=== PATIENT | female | born 1965 | race Hispanic/Latino ===

== ENCOUNTER 2018-03-10 10:02 | Day surgery (SDC) | payer BC ==
[~2018-03-10 10:02] MED LIST: VANCOMYCIN PHARMACY TO DOSE IV SCH; VANCOMYCIN/NS 1 GM/250 ML 1 GM/250 ML BAG IV SCH
[2018-03-10] MEDS ORDERED: NACL BACTERIOSTATIC INFILTRATI ONE (11:04)
[2018-03-10] MEDS ORDERED: DILAUDID IV PRN (11:25)
[2018-03-10] MEDS ORDERED: ZOFRAN IV PRN (11:25)
[2018-03-10] MEDS ORDERED: SUBLIMAZE IV NR (11:25)
[2018-03-10] MEDS ORDERED: SUBLIMAZE IV PRN (11:25)
--- NOTE | 2018-03-10 11:25 | Anesthesia Day of Surgery ---
Anesthesia Day of Surgery - Day of Surgery Patient Examined: Yes Patient H&P Reviewed: Yes Patient is NPO: Yes
--- NOTE | 2018-03-10 11:25 | Anesthesia Consultation ---
Anesthesia Consult and Med Hx - Airway Anesthetic Teeth Evaluation: Good ROM Head & Neck: Adequate Mental/Hyoid Distance: Adequate Mallampati Class: Class II Intubation Access Assessment: Good - Pulmonary Exam CTA: Yes - Cardiac Exam Cardiac Exam: RRR - Pre-Operative Health Status ASA Pre-Surgery Classification: ASA3 Proposed Anesthetic Plan: General Nerve Block: IS - Pulmonary Hx Smoking: No Hx Sleep Apnea: No (IRAJ PRE SCREEN LOW RISK) - Cardiovascular System Hx Hypertension: No - Central Nervous System Hx Back Pain: Yes - Other Systems Hx Cancer: No
[2018-03-10] MEDS ORDERED: ZEMURON IV ONE (11:33)
[2018-03-10] MEDS ORDERED: DIPRIVAN 10 MG/ML IV ONE (11:34)
[2018-03-10] MEDS ORDERED: DECADRON ONE ×2 (11:34→13:53)
[2018-03-10] MEDS ORDERED: XYLOCAINE MPF 2% ONE (11:34)
[2018-03-10] MEDS ORDERED: LACTATED RINGERS 1,000 ML IV SCH (12:00)
[2018-03-10] MEDS ORDERED: VERSED IV NR (12:00)
[2018-03-10] MEDS ORDERED: ADRENALIN ONE (12:36)
[2018-03-10] MEDS ORDERED: MARCAINE 0.25% INFILTRATI ONE ×2 (12:36→14:39)
[2018-03-10] MEDS ORDERED: NAROPIN O.5% ONE (12:44)
[2018-03-10] MEDS ORDERED: ePHEDrine SULFATE ONE (13:47)
[2018-03-10] MEDS ORDERED: ZOFRAN ONE (13:54)
[2018-03-10] MEDS ORDERED: ADRENALIN IV ONE (13:58)
[2018-03-10] MEDS ORDERED: NACL 0.9% IR ONE (13:58)
[2018-03-10] MEDS ORDERED: TYLENOL PO PRN (15:30)
[2018-03-10] MEDS ORDERED: REGLAN ONE (15:55)
[2018-03-10] MEDS ORDERED: REGLAN IV PRN (15:57)
--- NOTE | 2018-03-10 16:36 | Post Anesthesia Evaluation ---
- Post Anesthesia Evaluation Patient Participated: Yes Airway Patent: Yes Stable Respiratory Function: Yes Nausea/Vomiting: Yes Temp > 96.8F: Yes Pain Manageable: Yes Adequeate Hydration: Yes Anesthesia Complications: No Block Receding Appropriately: Not Applicable Patient on Ventilator: No
[2018-03-10 17:13] VITALS: BP 126/73
--- NOTE | 2018-03-10 23:26 | Operative Report ---
PREOPERATIVE DIAGNOSIS: Right shoulder with impingement bursitis, partial thickness cuff tear. POSTOPERATIVE DIAGNOSES: 1. Right shoulder with marked subacromial impingement bursitis. 2. Diffuse partial thickness attenuation rotator cuff, supraspinatus. 3. Partial thickness articular surface tear rotator cuff. 4. Extensive labral fraying and type 1 SLAP tear. 5. Attenuation, subscapularis. PROCEDURE PERFORMED: 1. Right shoulder arthroscopy with arthroscopic subacromial bursectomy and decompression. 2. Arthroscopic extensive debridement including partial thickness bursal and articular surface rotator cuff tears and labrum. SURGEON: Davin Palencia M.D. RADIOLOGICAL EQUIPMENT SPECIALIST: Watson Wade CSA. ANESTHESIA: General plus scalene block. ESTIMATED BLOOD LOSS: Minimal. COMPLICATIONS: None. OPERATIVE PROCEDURE: The patient underwent successful induction of anesthesia. Following this, she was carefully positioned in the beach chair position, prepped and draped in usual fashion. Arthroscopy was carried out in the standard posterior portal. Entry made through triangular space under direct vision. Systematic examination of the joint was carried out. This demonstrated the findings noted. Articular surface relatively well preserved. The rotator cuff demonstrated attenuation at the subscapularis, that there was continuity noted. The labrum demonstrated diffuse fraying and a type 1 SLAP. The articular surface of the supraspinatus demonstrated approximately 20% marginal tearing which was gently debrided. The labrum and the flap tears were also debrided. The biceps itself appeared to be well preserved and did not require any kind of tenodesis. The evaluation was carried out to intraarticular. The arthroscope was placed in the subacromial space of the posterior portal. Noted marked subacromial bursitis and type 3 acromion, decompressed with straight lateral portal. This has demonstrated significant lateral downsloping. The rotator cuff demonstrated diffuse attenuation of the supraspinatus consistent with partial thickness bursal tearing with no significant tear that required repair. This felt demonstrating approximately 30-40% attenuation. Gentle debridement was carried out. Intraoperative photos were obtained for documentation. The arthroscopic instruments were removed. Ports were closed with nylon sutures. A sterile dressing applied. He was taken to the recovery in satisfactory condition having tolerated the procedure well. JOB# [id number]/[id number]
== END 2018-03-10 16:45 | disposition home or self-care (01) ==
LOC: OR 10:02
PROVIDERS: ATTEND Orthopaedic Surgery
DX: M75.111 Incomplete rotator cuff tear or rupture of right shoulder, not specified as traumatic (principal); S43.431A Superior glenoid labrum lesion of right shoulder, initial encounter; M75.51 Bursitis of right shoulder; M25.811 Other specified joint disorders, right shoulder; X58.XXXA Exposure to other specified factors, initial encounter; Y93.89 Activity, other specified; Y92.89 Other specified places as the place of occurrence of the external cause; Y99.8 Other external cause status; Z88.8 Allergy status to other drugs, medicaments and biological substances; Z88.0 Allergy status to penicillin; Z91.041 Radiographic dye allergy status; Z82.49 Family history of ischemic heart disease and other diseases of the circulatory system; Z83.3 Family history of diabetes mellitus
CPT/HCPCS: 29823; 29826; A4217; J0171; J1100; J1170; J2250; J2405; J2704; J2765; J2795; J3370; J7120; J3010